=== PATIENT | female | born 1945 | race African-American/Black ===

== ENCOUNTER 2017-09-11 19:15 | Emergency (ER) | payer OTHER ==
[~2017-09-11] VITALS: Ht 167.6 cm; Wt 108.9 kg
[2017-09-11] MEDS ORDERED: IBUPROFEN 600600 M1 PO (20:06)
[2017-09-11] MEDS ORDERED: AMOXICILLIN500 M1 PO (20:06)
[2017-09-11 20:16] VITALS: BP 198/101
== END 2017-09-11 20:40 | disposition home or self-care (01) ==
LOC: ER 19:15
DX: H66.93 Otitis media, unspecified, bilateral (principal); J06.9 Acute upper respiratory infection, unspecified